=== PATIENT | female | born 1945 | race African-American/Black ===

== ENCOUNTER → 2020-12-17 | Outpatient (CLI) | payer MEDICARE ==
[2015-10-02 11:45] VITALS: BP 178/91
[~2020-12-17] MED LIST: AMLO10TA4 PO; AMLO5TAB4 PO; HYDR-2765 PO; HYDR12.58 PO; LISI20TA18 PO; MORP15TA PO
--- NOTE | 2020-12-17 16:53 | RAD ---
EXAM: Pelvis and left hip, 3 views. HISTORY: Pain. COMPARISON: None. FINDINGS: A frontal view of the pelvis and 2 views of the left hip are obtained. There is no fracture , dislocation or subacute fixation. There is moderate marginal acetabular and femoral head spurring. There is instrumented fusion involving the lower lumbar spine, not formally assessed on this exam. IMPRESSION: 1. Moderate bilateral hip osteoarthritis. 2. No acute osseous finding. Electronically signed by: Trina De Leon MD (12/17/2020 4:51 PM) [id number]
== END ==
LOC: RAD 10:22
PROVIDERS: ATTEND Physical Medicine & Rehabilitation
DX: M16.0 Bilateral primary osteoarthritis of hip (principal)
CPT/HCPCS: 73502